=== PATIENT | male | born 1955 | race Caucasian/White ===

== ENCOUNTER 2023-10-10 16:18 | Emergency (ER) | payer BC ==
[~2023-10-10] VITALS: Ht 172.7 cm; Wt 78.2 kg
[2023-10-10] MEDS ORDERED: ASPIRIN E.C. 8181 MG (16:49)
[2023-10-10] MEDS ORDERED: AMLODIPINE BESYL5 MG PO (16:49)
[2023-10-10] MEDS ORDERED: ZOCOR20 M1 PO (16:49)
[2023-10-10] MEDS ORDERED: PRILOSEC 20MG20 MG PO (16:50)
[2023-10-10] MEDS ORDERED: CARAFATE 1GM1 G PO (16:50)
[2023-10-10] MEDS ORDERED: Cephalexin 500 MG CAP PO ONE (17:30)
[2023-10-10] MEDS ORDERED: CEPHALEXIN500 M1 PO (17:33)
[2023-10-10 17:47] VITALS: BP 153/87
== END 2023-10-10 17:45 | disposition home or self-care (01) ==
LOC: ED 16:18
DX: S61.522A Laceration with foreign body of left wrist, initial encounter (principal); Z79.82 Long term (current) use of aspirin; Z88.0 Allergy status to penicillin; W31.89XA Contact with other specified machinery, initial encounter